=== PATIENT | female | born 1980 | race Caucasian/White ===

== ENCOUNTER 2017-04-27 17:54 | Emergency (ER) | payer BC, OTHER ==
[~2017-04-27] VITALS: Ht 172.7 cm; Wt 154.6 kg
[2017-04-27] MEDS ORDERED: FLORCAP10 PO (18:04)
[2017-04-27 18:37] VITALS: BP 130/80
--- NOTE | 2017-04-27 18:38 | REP ---
Clinical: Trauma. Injury. Technique: AP, lateral, bilateral oblique views of the right ankle. Findings: There is a transverse nondisplaced fracture at the tip of the fibula / lateral malleolus overlying soft tissue swelling. Ankle mortise intact. No other fracture or dislocation is appreciated. Lateral view demonstrates small calcaneal heal spur. Impression: Transverse nondisplaced fracture of the distal fibular tip / lateral malleolus with lateral soft tissue swelling. Signed by Matthew Wilburn MD 04/27/2017 06:29 P
[2017-04-27] MEDS ORDERED: MORPHINE 2 MG/ML 1ML SYRINGE IM ONE (18:45)
[2017-04-27] MEDS ORDERED: ONDANSETRON 4 MG ORAL DISINTEGRATING TAB (S0181) PO ONE (18:45)
[2017-04-27] MEDS ORDERED: NORCOTAB PO (19:09)
== END 2017-04-27 19:30 | disposition home or self-care (01) ==
LOC: M ED 17:54
DX: S82.424A Nondisplaced transverse fracture of shaft of right fibula, initial encounter for closed fracture (principal); S82.64XA Nondisplaced fracture of lateral malleolus of right fibula, initial encounter for closed fracture; X50.1XXA Overexertion from prolonged static or awkward postures, initial encounter; Y92.099 Unspecified place in other non-institutional residence as the place of occurrence of the external cause; Y93.9 Activity, unspecified; Y99.9 Unspecified external cause status; J45.909 Unspecified asthma, uncomplicated; Z86.711 Personal history of pulmonary embolism; Z79.899 Other long term (current) drug therapy

== ENCOUNTER 2019-02-04 09:21 | Emergency (ER) | payer OTHER ==
[~2019-02-04] VITALS: Ht 172.7 cm; Wt 190.9 kg
[~2019-02-04 09:21] MED LIST: ADV250INH INH; FLORCAP10 PO; HYDR-3715 PO; OXYC1TAB23 PO; albuterol hfa INH
[2019-02-04] MEDS ORDERED: MECL-68 PO (09:29)
[2019-02-04] MEDS ORDERED: PRED20TA PO (09:29)
[2019-02-04] MEDS ORDERED: diazePAM 5 MG TAB PO ONE (11:15)
[2019-02-04] MEDS ORDERED: Vestibular PT (12:16)
[2019-02-04 12:29] VITALS: BP 146/84
--- NOTE | 2019-02-04 15:34 | REP ---
Clinical: Dizziness . Comparison: None . Findings: The ventricles, sulci, and cisterns are normal in position and appearance. Tovar-white differentiation is maintained. No acute intracranial hemorrhage, mass/mass effect, pathology or trauma/injury. No evidence for acute infarction. No extra-axial fluid collection. Calvarium is intact. Paranasal sinuses and mastoid air cells are clear. Impression: Normal noncontrast head CT. No evidence for acute intracranial pathology or trauma/injury. Electronically Signed by Matthew Wilburn MD 02/04/2019 11:23 A
== END 2019-02-04 12:30 | disposition home or self-care (01) ==
LOC: M ED 09:21
DX: H81.10 Benign paroxysmal vertigo, unspecified ear (principal); Z79.52 Long term (current) use of systemic steroids

== ENCOUNTER 2019-02-27 16:30 | Outpatient (RCR) | payer OTHER ==
[~2019-02-27 16:30] MED LIST changes: +MECL-68 PO; +PRED20TA PO; +Vestibular PT
== END 2019-03-03 ==
LOC: M PT 16:30
PROVIDERS: ATTEND Internal Medicine
DX: H81.12 Benign paroxysmal vertigo, left ear (principal)

== ENCOUNTER → 2020-03-31 | Outpatient (REF) | payer OTHER ==
[~2020-03-31] MED LIST changes: -MECL-68 PO; +MECL1TAB31 PO
== END ==
LOC: M WUC 15:48
PROVIDERS: ATTEND Physician Assistant
DX: R30.0 Dysuria (principal)

== ENCOUNTER → 2020-05-26 | Outpatient (REF) | payer OTHER | LOC: M LAB REF 12:17 | PROVIDERS: ATTEND Internal Medicine | DX: N39.0 Urinary tract infection, site not specified (principal) ==

== ENCOUNTER 2020-09-01 05:10 | Emergency (ER) | payer OTHER ==
[~2020-09-01] VITALS: Ht 172.7 cm; Wt 174.3 kg
[2020-09-01] MEDS ORDERED: SYMB16INH INH (05:18)
[2020-09-01] MEDS ORDERED: SUCR1TA PO (05:18)
[2020-09-01] MEDS ORDERED: CHOL4POW4 PO (05:18)
[2020-09-01 07:06] VITALS: BP 135/95
[2020-09-01] MEDS ORDERED: FLUCONAZOLE 50MG TABLET PO ONE (07:25)
[2020-09-01] MEDS ORDERED: SULF1TAB23 PO (07:27)
[2020-09-01] MEDS ORDERED: PHEN-372 PO (07:27)
== END 2020-09-01 07:39 | disposition home or self-care (01) ==
LOC: M ED 05:10
DX: B37.9 Candidiasis, unspecified (principal); N39.0 Urinary tract infection, site not specified; E66.9 Obesity, unspecified; J45.909 Unspecified asthma, uncomplicated; Z87.448 Personal history of other diseases of urinary system

== ENCOUNTER → 2020-09-08 | Outpatient (CLI) | payer OTHER ==
[~2020-09-08] MED LIST changes: +CHOL4POW4 PO; +PHEN-372 PO; +SUCR1TA PO; +SULF1TAB23 PO; +SYMB16INH INH
--- NOTE | 2020-09-08 08:10 | REP ---
INDICATION: ELEVATED LFTS. COMPARISON: None. TECHNIQUE: Multiple sonographic images of the abdominal right upper quadrant. FINDINGS: The gallbladder is not visualized and could be contracted or surgically absent. The intrahepatic and extrahepatic biliary ducts are not visualized. The hepatic parenchyma is poorly visualized. The pancreas is obscured by bowel gas. The right kidney is not visualized. IMPRESSION: Nondiagnostic study. Patient body habitus precludes visualization of the right upper quadrant abdominal organs. <Electronically signed by Magdaleno Mclean > 09/08/20 0816
[2020-09-08 08:34] LABS: INR 0.95; PROTHROMBIN TIME 12.9 SECONDS (12.5-14.3)
[2020-09-08 08:35] LABS: PARTIAL THROMBOPLASTIN TIME 27.4 SECONDS (24.2-38.5)
[2020-09-08 09:03] LABS: ALBUMIN 3.5 GM/DL (3.2-5.2); ALT/SGPT 136 U/L (12-78); AMYLASE 36 U/L (25-115); BILIRUBIN,DIRECT 0.1 MG/DL (0.0-0.2); BILIRUBIN,TOTAL 0.4 MG/DL (0.2-1.0); FERRITIN 76 NG/ML (8-252); IRON (FE) 70 UG/DL (50-170); LIPASE 103 U/L (73-393); PERCENT SATURATION 14.9 % (13.2-45.0); TOTAL IRON BINDING CAPACITY 470 UG/DL (250-450); TOTAL PROTEIN 7.6 GM/DL (6.4-8.2)
[2020-09-08 11:59] LABS: HEPATITIS B SURFACE ANTIBODY NEGATIVE (POSITIVE)
[2020-09-08 12:09] LABS: HEPATITIS B SURFACE ANTIGEN NEGATIVE (NEGATIVE)
[2020-09-08 12:37] LABS: HEPATITIS C VIRUS ABY INDEX < 0.0 INDEX (<0.8)
[2020-09-08 12:39] LABS: HEPATITIS A ANTIBODY IGM NEGATIVE (NEGATIVE)
[2020-09-09 13:26] LABS: ALBUMIN 3.91 GM/DL (3.29-5.55); ALBUMIN % 51.4 % (55.8-66.1); ALPHA-1-GLOBULIN % 4.5 % (2.9-4.9); ALPHA-1-GLOBULINS 0.34 GM/DL (0.17-0.41); ALPHA-2-GLOBULINS 0.87 GM/DL (0.42-0.99); ALPHA-2-GLOBULINS % 11.5 % (7.1-11.8); BETA-1-GLOBULINS 0.59 GM/DL (0.28-0.60); BETA-1-GLOBULINS % 7.7 % (4.7-7.2); BETA-2-GLOBULINS 0.54 GM/DL (0.19-0.55); BETA-2-GLOBULINS % 7.1 % (3.2-6.5); GAMMA GLOBULIN % 17.8 % (11.1-18.8); GAMMA GLOBULINS 1.35 GM/DL (0.65-1.58)
[2020-09-10 13:07] LABS: ALPHA 1 ANTITRYPSIN 144 mg/dL (100-188); ANTI-SACCHAROMYCES CEREV. IgA <20.0 Units (0.0-24.9); ANTI-SACCHAROMYCES CEREV. IgG <20.0 Units (0.0-24.9); ANTINUCLEAR ANTIBODIES DIRECT Negative (Negative); CERULOPLASMIN 32.9 mg/dL (19.0-39.0); HEPATITIS A IgG TOTAL Negative (Negative); LIVER-KIDNEY MICROSOMAL ABY <20.1 Units (0.0-20.0); TISSUE TRANSGLUTAMINASE IgG 4 U/mL (0-5)
== END ==
LOC: M RAD 06:39
PROVIDERS: ATTEND Internal Medicine Gastroenterology
DX: K59.1 Functional diarrhea (principal); K92.1 Melena; K62.89 Other specified diseases of anus and rectum; R94.5 Abnormal results of liver function studies

== ENCOUNTER 2021-05-27 05:24 | Emergency (ER) | payer OTHER ==
[~2021-05-27] VITALS: Ht 172.7 cm; Wt 177.3 kg
[2021-05-27 05:25] VITALS: BP 139/92
[2021-05-27 07:16] VITALS: O2SAT 95
[2021-05-27] MEDS ORDERED: MICR1TAB5 (08:33)
== END 2021-05-27 10:09 | disposition home or self-care (01) ==
LOC: M ED 05:24
DX: U07.1 COVID-19 (principal); J45.909 Unspecified asthma, uncomplicated; K21.9 Gastro-esophageal reflux disease without esophagitis; Z86.711 Personal history of pulmonary embolism; Z87.01 Personal history of pneumonia (recurrent); Z79.899 Other long term (current) drug therapy

== ENCOUNTER 2021-05-27 10:41 | Outpatient (CLI) | payer OTHER ==
[2021-05-27 10:31] VITALS: BP 145/83
[~2021-05-27 10:41] MED LIST changes: +ALBUTEROL 90 MCG/ACT 8GM HFA INHALER INH PRN; +ALBUTEROL SULFATE 2.5 MG/0.5 ML INH NEB SOLN INH PRN; +EPINEPHrine INJ 1 MG/ML 1ML AMP IM PRN; +MICR1TAB5; +NS 1,000 ML IV SCH; +diphenhydrAMINE 50MG/ML VIAL (J1200) IV PRN; +methylPREDNISolone 125MG 2ML VIAL IV PRN
[2021-05-27] MEDS ORDERED: CASIRIVIMAB/IMDEVIMAB 1,200 MG in NS 250 ML IV ONE (11:00)
[2021-05-27 11:01] VITALS: BP 130/65
[2021-05-27 11:31] VITALS: BP 133/78
[2021-05-27 12:31] VITALS: BP 124/74
[2021-05-27] MEDS ORDERED: BAMLANIVIMAB 700 MG, ETESEVIMAB 1,400 MG in NS 250 ML IV ONE (13:00)
== END 2021-05-27 12:38 | disposition home or self-care (01) ==
LOC: M OPCLI4 10:41
PROVIDERS: ATTEND Family Medicine
DX: U07.1 COVID-19 (principal)

== ENCOUNTER → 2022-10-25 | Outpatient (CLI) | payer OTHER ==
[~2022-10-25] MED LIST changes: -ALBUTEROL 90 MCG/ACT 8GM HFA INHALER INH PRN; -ALBUTEROL SULFATE 2.5 MG/0.5 ML INH NEB SOLN INH PRN; +CHOL4POW26 PO; -CHOL4POW4 PO; -EPINEPHrine INJ 1 MG/ML 1ML AMP IM PRN; -NS 1,000 ML IV SCH; -diphenhydrAMINE 50MG/ML VIAL (J1200) IV PRN; -methylPREDNISolone 125MG 2ML VIAL IV PRN
== END ==
LOC: M RAD 09:03
PROVIDERS: ATTEND Internal Medicine Gastroenterology
DX: K59.1 Functional diarrhea (principal); R10.84 Generalized abdominal pain; R10.11 Right upper quadrant pain; R94.5 Abnormal results of liver function studies

== ENCOUNTER → 2024-07-16 | Outpatient (REF) | payer OTHER ==
[~2024-07-16] MED LIST changes: -ADV250INH INH; +ADVA1AER9 INH; +MECL-209 PO; -MECL1TAB31 PO
== END ==
LOC: M LAB REF 16:22
PROVIDERS: ATTEND Nurse Practitioner Family
DX: R06.02 Shortness of breath (principal)

== ENCOUNTER → 2024-12-09 | Outpatient (CLI) | payer OTHER ==
[~2024-12-09] MED LIST changes: +ISOVUE-370 76% 100 ML VIAL As Ordered ONE
== END ==
LOC: M RAD 15:27
PROVIDERS: ATTEND Internal Medicine Gastroenterology
DX: R19.5 Other fecal abnormalities (principal)